=== PATIENT | male | born 1955 | race Caucasian/White ===

== ENCOUNTER 2021-08-28 13:58 | Outpatient (RCR) | payer OTHER, SELFPAY | END 2021-09-27 23:59 | disposition home or self-care (01) | LOC: TPT 13:58 | PROVIDERS: Referring Provider Emergency Medicine Emergency Medical Services; Visit Provider Emergency Medicine Emergency Medical Services | DX: Z47.1 Aftercare following joint replacement surgery (principal); Z96.652 Presence of left artificial knee joint | CPT/HCPCS: 97110; 97140; 97162 ==

== ENCOUNTER 2022-03-30 21:35 | Emergency (ER) | payer OTHER, SELFPAY ==
[2022-03-30 21:39] VITALS: PULSE 73; RESP 18; TEMP 36.6; O2SAT 98
[2022-03-30 21:43] VITALS: BP 184/98
--- NOTE | 2022-03-30 22:15 | W.ED.WOUNDLC ---
HPI - Wound/Laceration General: Chief Complaint: Wound/Laceration Stated Complaint: right hand lac, fall Time Seen by Provider: 03/30/22 21:53 History of Present Illness: Patient comes in with left knee and right hand injury. States that he tripped and fell landing on his left knee and cutting his right hand. Associated symptoms: Denies fever(s), nausea or vomiting Review of Systems Const: Denies: fever(s) or body aches Eyes: Denies: change in vision or blurry vision ENMT: Denies: throat pain or odynophagia Card: Denies: chest pain or palpitations Resp: Denies: dyspnea or productive cough GI: Denies: abdominal pain, nausea or vomiting : Denies: flank pain or dysuria Musc: Denies: neck pain or back pain Skin/Breast: Denies: rash or pruritus Neuro: Denies: headache(s) or numbness in extremities Psych: Denies: anxiety or change in appetite Endo: Denies: polyuria or excessive sweating Physical Exam Const: COMMON NORMALS: no acute distress, patient oriented x3, healthy appearing and alert HENMT: COMMON NORMALS: normocephalic and atraumatic HEAD & SCALP: normocephalic and atraumatic Eye: COMMON NORMALS: Equal, round and reactive pupils present and EOMs intact bilaterally PUPIL: Yes Equal, round and reactive pupils present Neck/C-Spine: COMMON NORMALS: full ROM and supple Resp: COMMON NORMALS: normal respiratory effort, No retractions and No use of accessory muscles Cardio: COMMON NORMALS: regular rate and regular rhythm RATE: regular rate RHYTHM: regular rhythm GI: COMMON NORMALS: Normal to inspection, nondistended, normoactive bowel sounds present, Soft to palpation and non-tender PALPATION: Yes Soft to palpation Back/Pelvis: COMMON NORMALS: thoracic and lumbar spine normal to inspection and no thoracic nor lumbar tenderness Extremity: NARRATIVE EXTREMITY EXAM: an abrasion/contusion and swelling of his left knee. He can bear weight and has full range of motion without pain. 2 cm laceration at the base of his right pinky finger. Neuro: COMMON NORMALS: patient oriented x3 SENSORIUM/ORIENTATION: Yes alert Psych: COMMON NORMALS: mental status grossly normal and cooperative Skin: COMMON NORMALS: no rashes or lesions noted GENERAL SKIN EXAM: no rashes or lesions noted Course Vital Signs: Vital signs: Vital Signs Temperature 97.8 F 03/30/22 21:39 Pulse Rate 73 03/30/22 21:39 Respiratory Rate 18 03/30/22 21:39 Blood Pressure 184/98 03/30/22 21:43 Pulse Oximetry 98 03/30/22 21:39 Oxygen Delivery Me thod 03/30/22 21:39 MDM - Wound/Laceration Medical Decision Making Patient comes in with left knee and right hand injury. States that he tripped and fell landing on his left knee and cutting his right hand. On physical exam he has an abrasion/contusion and swelling of his left knee. He can bear weight and has full range of motion without pain. He has previous full knee replacement on that side. He also has a 2 cm laceration at the base of his right pinky finger. It is a linear well approximated laceration. I talked to him about sutures versus Dermabond and Steri-Strips, and he is agreeable to the Dermabond and Steri-Strip. We will give him a tetanus shot, clean and repair the wound, and reassess. Patient tolerated the wound repair without complication. Will discharge at this time with precautions to return for worsening or changing symptoms. 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
[2022-03-30] MEDS: tetanus-diphtheria tox (adult) 0.5 mL SDV IM (22:26)
[2022-03-30 22:37] VITALS: PULSE 66; RESP 17; TEMP 36.7; O2SAT 99
== END 2022-03-30 22:49 | disposition home or self-care (01) ==
PROVIDERS: Emergency Provider Emergency Medicine
DX: S61.411A Laceration without foreign body of right hand, initial encounter (principal); S80.02XA Contusion of left knee, initial encounter; Z23 Encounter for immunization; W01.0XXA Fall on same level from slipping, tripping and stumbling without subsequent striking against object, initial encounter
CPT/HCPCS: 12001; 90471; 90714; 99283

== ENCOUNTER 2022-08-15 20:00 | Outpatient (CLI) | payer OTHER, SELFPAY | END 2022-08-15 20:01 | disposition home or self-care (01) | LOC: SLEEP 08-16 06:11 | PROVIDERS: Visit Provider Emergency Medicine Emergency Medical Services | DX: G47.33 Obstructive sleep apnea (adult) (pediatric) (principal) | CPT/HCPCS: 95810 ==

== ENCOUNTER 2022-10-14 06:12 | Outpatient (CLI) | payer OTHER, SELFPAY | END 2022-10-14 06:13 | disposition home or self-care (01) | LOC: SLEEP 10-15 06:12 | PROVIDERS: Visit Provider Emergency Medicine Emergency Medical Services | DX: G47.33 Obstructive sleep apnea (adult) (pediatric) (principal) | CPT/HCPCS: 95811 ==

== ENCOUNTER 2023-10-01 12:15 | Inpatient (IN) | payer OTHER, SELFPAY ==
[2023-10-01] VITALS (8 sets, daily range): BP systolic 139–161; BP diastolic 75–98; PULSE 63–83; RESP 14–20; TEMP 36.4–36.7; O2SAT 94–97; BMI 33.9; BMI 34.3
--- NOTE | 2023-10-01 12:26 | ECG_ITS ---
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 Measurements Intervals [place] Rate: 72 P: 16 OR: 158 QRS: 8 QRSD: 105 T: 30 QT: 375 QTc: 412 Interpretive Statements SINUS RHYTHM NONSPECIFIC T-WAVE ABNORMALITY No previous ECG available for comparison Electronically Signed On 10-01-2023 12:40:22 CDT by Stefano Gallagher M.D. [id number]
--- NOTE | 2023-10-01 12:33 | XR_ITS ---
WS: [id number] Examination: XR chest 1V portable [id number] Reason for Exam: cp Date: October 01, 2023 Comparison: None. Findings: Heart is not enlarged. The mediastinum not widened There is no pulmonary edema or pleural effusion. There is no dense consolidation. Suspected granulomas are noted particularly on the left. Impression: No acute lung process is seen.
--- NOTE | 2023-10-01 12:54 | W.ED.SOB ---
HPI - SOB/Dyspnea General: Chief Complaint: Shortness of Breath/Dyspnea Stated Complaint: sob Time Seen by Provider: 10/01/23 12:32 Source: patient Mode of arrival: ambulatory Limitations: no limitations History of Present Illness: HPI Narrative: 68-year-old male had a total knee revision to his left knee a week ago. He states that last night he felt like he could not breathe with his CPAP on and had a panic attack he states that he is continue to fail some shortness of breath throughout the day today denies any chest pain he spoke to his surgeon they want him to be ruled out for a pulmonary embolism. He denies any cough or fever. Associated symptoms: Deny abdominal pain, chest pain, fever(s), nausea or vomiting Review of Systems Const: Denies: fever(s), chills, body aches or change in appetite ENMT: Denies: throat pain or dental pain Card: Denies: chest pain Resp: Reports: dyspnea GI: Denies: abdominal pain, nausea, vomiting or diarrhea Musc: Denies: neck pain or back pain Skin/Breast: Denies: rash Neuro: Denies: headache(s) Physical Exam Const: COMMON NORMALS: no acute distress, patient oriented x3 and healthy appearing HENMT: COMMON NORMALS: normocephalic and atraumatic HEAD & SCALP: normocephalic and atraumatic Eye: COMMON NORMALS: conjunctivae normal CONJUNCTIVA: Yes conjunctivae normal Neck/C-Spine: COMMON NORMALS: full ROM and supple Chest: COMMONS NORMALS: normal inspection of the chest and normal palpation of entire chest wall Resp: COMMON NORMALS: normal respiratory effort, No retractions, No use of accessory muscles and clear to auscultation bilaterally AUSCULTATION: clear to auscultation bilaterally Cardio: COMMON NORMALS: regular rate, regular rhythm and No murmurs present (Cardio) RATE: regular rate RHYTHM: regular rhythm Extremity: COMMON NORMALS: normal to inspection and full ROM Neuro: COMMON NORMALS: patient oriented x3, moves all extremities and no focal motor deficits Psych: COMMON NORMALS: mental status grossly normal, Normal thought process present and cooperative THOUGHT PROCESS: Normal thought process present Skin: COMMON NORMALS: no rashes or lesions noted and no wounds GENERAL SKIN EXAM: no rashes or lesions noted Course Vital Signs: Vital signs: Vital Signs Temperature 97.5 F L 10/01/23 12:20 Pulse Rate 71 10/01/23 14:30 Respiratory Rate 16 10/01/23 14:30 Blood Pressure 144/88 10/01/23 14:30 Pulse Oximetry 97 10/01/23 14:30 Oxygen Delivery Me thod Room Air 10/01/23 14:30 MDM - SOB/Dyspnea Medical Decision Making To the pulmonary embolism his vitals here are stable we will start him on Lovenox spoke to the hospitalist will admit. Medical Records I reviewed the patient's medical records. Lab Data I reviewed the patient's lab results. 10/01/23 12:48 10/01/23 12:48 Labs/Radiology: Laboratory Results WBC 9.34 10^3/uL (3.29-11.43) 10/01/23 12:48 RBC 4.36 10^6/uL (3.85-5.65) 10/01/23 12:48 Hgb 13.70 g/dL (11.27-16.99) 10/01/23 12:48 Hct 40.1 % (37-53) 10/01/23 12:48 MCV 92.0 fl (82-101) 10/01/23 12:48 MCH 31.4 pg (27-33) 10/01/23 12:48 MCHC 34.2 g/dL (30-55) 10/01/23 12:48 RDW 13.4 % (12.1-15.1) 10/01/23 12:48 Plt Count 590 10^3/cmm (157-399) H 10/01/23 12:48 MPV 11.0 fL (7.4-10.4) H 10/01/23 12:48 Neut % (Auto) 61.2 % 10/01/23 12:48 Lymph % (Auto) 21.1 % 10/01/23 12:48 Bond % (Auto) 13.2 % 10/01/23 12:48 Eos % (Auto) 3.4 % 10/01/23 12:48 Baso % (Auto) 0.9 % 10/01/23 12:48 Neut # (Auto) 5.72 10^3/uL (1.8-7.7) 10/01/23 12:48 Lymph # (Auto) 2.0 10^3/uL (0.8-4.8) 10/01/23 12:48 Bond # (Auto) 1.2 10^3/uL (0.2-0.9) H 10/01/23 12:48 Eos # (Auto) 0.3 10^3/uL (0.0-0.8) 10/01/23 12:48 Baso # (Auto) 0.1 10^3/uL (0.0-0.1) 10/01/23 12:48 Nucleated RBC % (auto) 0 % 10/01/23 12:48 Nucleated RBCs # 0.0 /100WBC 10/01/23 12:48 D-Dimer 3.10 ug/mLFEU (0-0.59) H 10/01/23 12:48 Sodium 141 mmol/L (136-145) 10/01/23 12:48 Potassium 4.6 mmol/L (3.5-5.1) 10/01/23 12:48 Chloride 107 mmol/L (98-107) 10/01/23 12:48 Carbon Dioxide 22 mmol/L (22-29) 10/01/23 12:48 Anion Gap 16.6 (5-19) 10/01/23 12:48 BUN 14 mg/dL (8-23) 10/01/23 12:48 Creatinine 0.9 mg/dL (0.7-1.2) 10/01/23 12:48 GFR Calculation 84.4 mL/min (90-130) L 10/01/23 12:48 Glucose 110 mg/dL (65-115) 10/01/23 12:48 Calculated Osmolality 293 mOsm/kg (285-295) 10/01/23 12:48 Calcium 10.0 mg/dL (8.5-10.5) 10/01/23 12:48 Total Bilirubin 1.0 mg/dL (0.15-1.2) 10/01/23 12:48 AST 31 U/L (0-40) 10/01/23 12:48 ALT 52 U/L (0-41) H 10/01/23 12:48 Alkaline Phosphatase 104 U/L (40-130) 10/01/23 12:48 Troponin T Baseline 18 ng/L (0-15) H 10/01/23 12:48 Troponin T 120 Minute 12.55 ng/L (0-15) 10/01/23 14:48 Delta Troponin T -5.45 ABS# (0-10) L 10/01/23 14:48 NT-Pro-B Natriuret Pep 53 pg/mL (0-125) 10/01/23 12:48 Total Protein 7.1 g/dL (6.6-8.7) 10/01/23 12:48 Albumin 4.1 g/dL (3.5-5.2) 10/01/23 12:48 Globulin 3.0 g/dL (1.3-4.6) 10/01/23 12:48 All radiology interpretation(s) finalized by discharge EKG Data EKG 1: I personally reviewed and interpreted this EKG as follows: EKG Interpretation Date: 10/01/23 EKG interpretation time: 12:26 Interpretation: nsr hr [address] or t wave abnormalities qrs 105 qtc 399 EKG 2: I personally reviewed and interpreted this EKG as follows: EKG Interpretation Date: 10/01/23 EKG interpretation time: 14:50 Interpretation: nsr hr [address] or t wave abnormalities qrs 96 qtc 408 Discharge Plan Discharge Condition: Stable Prescriptions: No Action celecoxib 200 mg capsule 200 mg PO BID cetirizine 10 mg Tablet 10 mg PO DAILY PRN (Reason: Allergy Symptoms) ibuprofen 800 mg Tablet 800 mg PO TID PRN (Reason: Pain) aspirin 81 mg tablet,delayed release (DR/EC) 81 mg PO BID tramadol 50 mg tablet 50 mg PO Q6H PRN (Reason: Pain) famotidine 20 mg tablet 20 mg PO BID tamsulosin 0.4 mg Capsule 0.4 mg PO QPM carboxymethylcellulose sodium 0.5 % Drops 1 drp OPHTHALMIC (EYE) QID PRN (Reason: Dry Eye(S)) triamcinolone acetonide 0.1 % Ointment 1 applic TOPICAL BID PRN (Reason: rash) lidocaine 5 % Adhesive Patch,Medicated 1 patch TOPICAL DAILY Rx Instructions: leave on most painful area for up to 12 hrs omeprazole 20 mg Capsule,Delayed Release(Dr/Ec) 20 mg PO DAILY dorzolamide-timolol 22.3-6.8 mg/mL Drops 1 drp OPHTHALMIC (EYE) BID Dulcolax (bisacodyl) 5 mg Tablet,Delayed Release (Dr/Ec) 5 mg PO DAILY PRN (Reason: Constipation) hydrochlorothiazide 25 mg Tablet 25 mg PO DAILY polyethylene glycol 3350 17 gram/dose powder 17 g PO DAILY lisinopril 40 mg Tablet 40 mg PO DAILY fluticasone propionate 50 mcg/actuation [place],Suspension 2 spray INTRANASAL DAILY PRN (Reason: Allergy Symptoms) Rx Instructions: administer into each nostril carboxymethylcellulose sodium 1 % Drops, Liquid Gel 1 drp OPHTHALMIC (EYE) QID PRN (Reason: Dry Eye(S)) oxycodone 5 mg tablet 5 mg PO Q4H PRN (Reason: Pain) tadalafil 20 mg Tablet 20 mg PO DAILY PRN (Reason: Erectile Dysfunction) Rx Instructions: administer approximately 30min before sexual activity; do not use more than 1 dose per 24hrs Vitamin D3 25 mcg (1,000 unit) Tablet 125 mcg PO DAILY diclofenac sodium 1 % Gel 4 g TOPICAL QID Rx Instructions: apply to single knee, ankle, foot; for foot includes sole/toes/top of foot cyclosporine 0.05 % Drops 1 drp OPHTHALMIC (EYE) Q12H Referrals: Jac Leach DO [Primary Care Provider] - Coding 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
[2023-10-01 13:10] LABS: Basophils # 0.1 10^3/uL (0.0-0.1); Basophils % 0.9 %; Eosinophils # 0.3 10^3/uL (0.0-0.8); Eosinophils % 3.4 %; Hematocrit 40.1 % (37-53); Lymphocytes % 21.1 %; Mean Corpuscular HGB Conc 34.2 g/dL (30-55); Mean Corpuscular Hemoglobin 31.4 pg (27-33); Monocytes # 1.2 10^3/uL (0.2-0.9); Monocytes % 13.2 %; Neutrophils # 5.72 10^3/uL (1.8-7.7); Neutrophils % 61.2 %; Nucleated Red Blood Cells % 0 %; Platelet Count 590 10^3/cmm (157-399); Red Blood Count 4.36 10^6/uL (3.85-5.65); Red Cell Distribution Width 13.4 % (12.1-15.1); White Blood Count 9.34 10^3/uL (3.29-11.43)
--- NOTE | 2023-10-01 13:15 | PC.NURSE ---
Pt on bedside diagnostic cardiac sonographer
[2023-10-01 13:35] LABS: Troponin(5th) Baseline 18 ng/L (0-15)
[2023-10-01 13:51] LABS: Alanine Aminotransferase 52 U/L (0-41); Albumin Level 4.1 g/dL (3.5-5.2); Alkaline Phosphatase 104 U/L (40-130); Anion Gap 16.6 (5-19); Aspartate Amino Transferase 31 U/L (0-40); Blood Urea Nitrogen 14 mg/dL (8-23); Carbon Dioxide 22 mmol/L (22-29); Chloride 107 mmol/L (98-107); Creatinine Clr Calc Pharmacy 101.9432; Glomerular Filtration Rate 84.4 mL/min (90-130); Glucose 110 mg/dL (65-115); NT Pro B Type Natriuretic Pept 53 pg/mL (0-125); Osmolality Calculated 293 mOsm/kg (285-295); Potassium 4.6 mmol/L (3.5-5.1); Sodium 141 mmol/L (136-145); Total Protein 7.1 g/dL (6.6-8.7)
--- NOTE | 2023-10-01 14:33 | ECG_ITS ---
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 Measurements Intervals [place] Rate: 67 P: 12 [place]: 161 QRS: 4 QRSD: 96 T: 9 QT: 392 QTc: 416 Interpretive Statements SINUS RHYTHM MODERATE VOLTAGE CRITERIA FOR LVH, CONSIDER NORMAL VARIANT [MEETS CRITERIA IN ONE OF: R(aVL), S(V1), R(V5), R(V5/V6)+S(V1)] NONSPECIFIC T-WAVE ABNORMALITY Compared to ECG 10/01/2023 12:26:34 No significant changes Electronically Signed On 10-01-2023 15:26:10 CDT by Stefano Gallagher M.D. [id number]
--- NOTE | 2023-10-01 14:49 | CT_ITS ---
WS: [id number] CTA OF THE CHEST WITH PULMONARY EMBOLISM PROTOCOL TECHNIQUE: High-resolution contrast enhanced CTA of the chest with coronal and sagittal reformatted i mages with pulmonary embolism protocol. MIP images are also reviewed. CLINICAL INFORMATION: sob COMPARISON: None. DLP: 513.[address] scans at [facility] use at least one of these dose optimization techniques: automated e xposure control; mA and/or kV adjustment per patient size (includes targeted exams where dose is matc hed to clinical indication); or iterative reconstruction. FINDINGS: Proximal main pulmonary arteries are normal. Filling defects in the segmental and subsegmental pulmon [place] arteries compatible with acute pulmonary embolus. This extends into both lungs. Paradoxical bowin g of the intraventricular septum compatible with RIGHT heart strain. This could be further evaluated with echocardiography. No mediastinal or hilar lymphadenopathy. No axillary lymphadenopathy. Small esophageal hiatal hernia. Cholecystectomy clips. Adrenal glands are normal. Celiac and SMA are patent in the upper abdomen. Lungs are well aerated. No acute pulmonary infiltrates. No pulmonary infarcts. IMPRESSION: 1. Acute pulmonary embolus in the bilateral segmental and subsegmental pulmonary arteries. Proximal main pulmonary arteries are patent. 2. Evidence of RIGHT heart strain. Recommend echocardiography. Notified Rodo Tovar MD at 10/01/2023 3:20 PM.
--- NOTE | 2023-10-01 14:54 | PC.NURSE ---
to CT scan
[2023-10-01] MEDS: iohexol 350 mg/mL 500 mL Btl (per mL) IV (15:06)
[2023-10-01 15:17] LABS: Troponin 5 2HR 12.55 ng/L (0-15)
[2023-10-01 15:21] LABS: Troponin 5 2HR Delta -5.45 ABS# (0-10)
[2023-10-01] MEDS: enoxaparin 120 mg/0.8 mL Syringe 110 MG SUBCUT (15:40)
--- NOTE | 2023-10-01 16:18 | PC.NURSE ---
Attempted report, nurse unavailable, will call me back when ready
--- NOTE | 2023-10-01 16:28 | P.HP_ITS ---
Providers/Chief Complaint 2 Admitting Physician: Julian Philip DO Primary Care Provider: Jac Leach DO Chief Complaint: sob History of Present Illness Reed Newton is a 68 year old male who is postop day 5 from left total knee arthroplasty revision done at [facility] by Dr. Doyle. Patient has a wound VAC and has a knee immobilizer on. He was sent home without physical therapy due to the wound VAC. He was placed on aspirin 81 mg daily. Patient admits to not being as active as instructed. He wears a CPAP at home. He complains that he was having trouble 2 nights ago not being able to take a deep breath. During the day it was better but laying down he became short of breath and even had an apparent panic attack last night. This morning he called Dr. Doyle's office to explain his symptoms and they asked him to be evaluated for PE In the emergency room he was found to have acute pulmonary embolus in the bilateral segmental and subsegmental pulmonary arteries. The proximal main pulmonary arteries are patent there is evidence of right heart strain. Review of Systems 2 Const: Denies: fever(s) or chills Eyes: Denies: change in vision ENMT: Denies: throat pain or nasal congestion Card: Denies: chest pain or palpitations Resp: Reports: dyspnea (Inability to take a deep breath); Denies: productive cough GI: Denies: abdominal pain, nausea, vomiting or change in stool character : Denies: difficulty urinating or dysuria Musc: Denies: back pain or extremity pain Skin/Breast: Denies: rash or lesions Neuro: Denies: headache(s) or dizziness Psych: Denies: anxiety or depression Tevin/Lymph: Denies: easy bruising or easy bleeding Medications/Allergies Home Medications Medication Instructions Recorded Confirmed Last Taken Type aspirin 81 mg tablet,delayed 81 mg PO BID 10/01/23 10/01/23 10/01/23 History release bisacodyl 5 mg tablet,delayed 5 mg PO DAILY PRN Constipation 10/01/23 10/01/23 09/30/23 History release (Dulcolax (bisacodyl)) carboxymethylcellulose sodium 0.5 1 drp ophthalmic (eye) QID PRN Dry 10/01/23 10/01/23 Unknown History % eye drops Eye(S) carboxymethylcellulose sodium 1 % 1 drp ophthalmic (eye) QID PRN Dry 10/01/23 10/01/23 Unknown History eye liquid gel drops Eye(S) celecoxib 200 mg capsule 200 mg PO BID 10/01/23 10/01/23 Unknown History cetirizine 10 mg tablet 10 mg PO DAILY PRN Allergy Symptoms 10/01/23 10/01/23 Unknown History cholecalciferol (vitamin D3) 25 125 mcg PO DAILY 10/01/23 10/01/23 10/01/23 History mcg (1,000 unit) tablet (Vitamin D3) cyclosporine 0.05 % eye drops 1 drp ophthalmic (eye) Q12H 10/01/23 10/01/23 10/01/23 History diclofenac sodium 1 % topical gel 4 g topical QID 10/01/23 10/01/23 Unknown History dorzolamide 22.3 mg-timolol 6.8 1 drp ophthalmic (eye) BID 10/01/23 10/01/23 10/01/23 History mg/mL eye drops famotidine 20 mg tablet 20 mg PO BID 10/01/23 10/01/23 Unknown History fluticasone propionate 50 2 spray intranasal DAILY PRN 10/01/23 10/01/23 Unknown History mcg/actuation nasal Allergy Symptoms spray,suspension hydrochlorothiazide 25 mg tablet 25 mg PO DAILY 10/01/23 10/01/23 10/01/23 History ibuprofen 800 mg tablet 800 mg PO TID PRN Pain 10/01/23 10/01/23 Unknown History lidocaine 5 % topical patch 1 patch topical DAILY 10/01/23 10/01/23 Unknown History lisinopril 40 mg tablet 40 mg PO DAILY 10/01/23 10/01/23 10/01/23 History omeprazole 20 mg capsule,delayed 20 mg PO DAILY 10/01/23 10/01/23 10/01/23 History release oxycodone 5 mg tablet 5 mg PO Q4H PRN Pain 10/01/23 10/01/23 Unknown History polyethylene glycol 3350 17 17 g PO DAILY 10/01/23 10/01/23 Unknown History gram/dose oral powder tadalafil 20 mg tablet 20 mg PO DAILY PRN Erectile 10/01/23 10/01/23 Unknown History Dysfunction tamsulosin 0.4 mg capsule 0.4 mg PO QPM 10/01/23 10/01/23 09/30/23 History tramadol 50 mg tablet 50 mg PO Q6H PRN Pain 10/01/23 10/01/23 Unknown History triamcinolone acetonide 0.1 % 1 applic topical BID PRN rash 10/01/23 10/01/23 Unknown History topical ointment Allergies Allergy/AdvReac Type Severity Reaction Status Date / Time diphenhydramine Allergy ADR-Irritab Verified 10/01/23 12:26 [From Benadryl] le morphine Allergy ALGY-Rash Verified 10/01/23 12:26 PFSH Acute 2 PFSH: Medical History (Updated 10/01/23 @ 16:48 by Julian Philip DO) Obesity (BMI 30.0-34.9) GERD (gastroesophageal reflux disease) Hypertension Surgical History (Updated 10/01/23 @ 16:48 by Julian Philip DO) Status post total knee replacement, left Revision, 09/26/2023 History of total left knee replacement 2019 in [place] History of total right hip replacement Social History (Updated 10/01/23 @ 16:36 by Julian Philip DO) Smoking and tobacco/nicotine status: unknown if used tobacco/nicotine Alcohol intake: unknown Household members: spouse Marital status: Vitals/I&O/Wt Last Vital Signs Temp 97.5 F L 10/01/23 12:20 Pulse 68 10/01/23 15:30 Resp 18 10/01/23 15:30 BP 161/98 10/01/23 15:30 Pulse Ox 95 10/01/23 15:30 O2 Del Method Room Air 10/01/23 15:30 Weight last 48 hrs Weight 110.223 kg Physical Exam 2 Narrative: Obese white male sitting up in bed in no acute distress. He has no oxygen on HEENT head is normocephalic atraumatic pupils equal round and reactive to light and commendation extraocular muscles intact there is no scleral icterus neck is supple no JVD carotid bruits lymphadenopathy mucous membranes are moist and pink without erythema or exudate Chest: Rises symmetrically with inspiration no pain to palpation Heart: Regular normal S1-S2 without murmurs clicks gallops or rubs lungs: clear to auscultation but slightly diminished air flow Abdomen: Protuberant positive bowel sounds no hepatosplenomegaly soft nontender Extremities. Left extremity in knee immobilizer this was removed he has a wound VAC on the left knee and there is still yellow iodine stain on his extremity postoperatively Neuro patient is alert and oriented to person place time and situation the patient is nonfocal exam Psych: Mood and affect are appropriate for condition Skin: No lesions or rashes noted Back: No obvious scoliosis or kyphosis no CVA tenderness Data 10/01/23 12:48 10/01/23 12:48 CXR: My impression: No acute findings Radiologist's impression: No acute lung process is seen. CTA Chest: Radiologist's impression: IMPRESSION: 1. Acute pulmonary embolus in the bilateral segmental and subsegmental pulmonary arteries. Proximal main pulmonary arteries are patent. 2. Evidence of RIGHT heart strain. Recommend echocardiography. EKG 2: My Interpretation: Normal sinus rhythm with a rate of 67 ND interval is normal QRS interval is 96. Moderate criteria for LVH. Nonspecific ST-T wave changes in 3 and aVF EKG computer-generated impression: SINUS RHYTHM MODERATE VOLTAGE CRITERIA FOR LVH, CONSIDER NORMAL VARIANT [MEETS CRITERIA IN ONE OF: R(aVL), S(V1), R(V5), R(V5/V6)+S(V1)] NONSPECIFIC T-WAVE ABNORMALITY Compared to ECG 10/01/2023 12:26:34 No significant changes A&P Assessment and plan (1) Pulmonary embolus: Patient given full dose Lovenox started in ER. Will obtain echocardiogram given CTA finding of right heart strain Etiology is immobility status post recent left total knee arthroplasty Qualifiers: Pulmonary embolism type: multiple subsegmental (without acute cor pulmonale) Qualified Code(s): I26.94 - Multiple subsegmental pulmonary emboli without acute cor pulmonale (2) Status post total knee replacement, left: PT tube consult for best mobility. (3) Obesity (BMI 30.0-34.9): (4) GERD (gastroesophageal reflux disease): Continue home meds Qualifiers: Esophagitis presence: esophagitis presence not specified Qualified Code(s): K21.9 - Gastro-esophageal reflux disease without esophagitis (5) Hypertension: Continue home medication Qualifiers: Hypertension type: primary hypertension Qualified Code(s): I10 - Essential (primary) hypertension (6) History of total left knee replacement: Attestations 2 Medical Necessity Statement*: Patient will cross 2 midnights due to pulmonary embolus and its treatment. He is at high risk for life-threatening hypoxia or heart failure Coding Level of Care Code Acute Code for Chg Fwd Diagnoses Multiple subsegmental pulmonary emboli without acute cor pulmonale I26.94 Pulmonary embolism type: multiple subsegmental (without acute cor pulmonale) Status post total knee replacement, left Z96.652 Obesity (BMI 30.0-34.9) E66.9 Gastroesophageal reflux disease, unspecified whether esophagitis present K21.9 Esophagitis presence: esophagitis presence not specified Primary hypertension I10 Hypertension type: primary hypertension History of total left knee replacement Z96.652
--- NOTE | 2023-10-01 16:49 | USCV_ITS ---
Reed Newton Age: 68 Gender: M : 1955 Exam Date: 10/01/2023 18:25 Ordering Phys: Julian Philip DO Technologist: Exam Location: [facility] [place] Indication: rt heart strain BP: 147 / 87 HR: 103 Rhythm: Sinus Technical Quality: Adequate MEASUREMENTS (Male / Female) Normal Values 2D ECHO LV Diastolic Diameter PLAX 4.1 cm 4.2 - 5.9 / 3.9 - 5.3 cm IVS Diastolic Thickness 1.2 cm 0.6 - 1.0 / 0.6 - 0.9 cm IVS Systolic Thickness 1.5 cm LVPW Diastolic Thickness 1.3 cm 0.6 - 1.0 / 0.6 - 0.9 cm LVPW Systolic Thickness 1.4 cm LVOT Diameter 2.0 cm LV Ejection Fraction 2D Teich 60.4 % LV Ejection Fraction MOD 2C 57.6 % LV Ejection Fraction 2C AL 57.5 % LA Diameter 3.6 cm RA Systolic Volume 4C AL 52.9 ml RA Systolic Volume 4C MOD 50.6 ml M-MODE LA Ao Ratio MM 1.0 AV Cusp Separation MM 2.0 cm DOPPLER AV Peak Velocity 131.0 cm/s LVOT Peak Velocity 109.0 cm/s AV Area Cont Eq vti 3.5 cm squared AV Area Cont Eq pk 2.7 cm squared MV Peak Velocity 134.0 cm/s MV Area PHT 7.9 cm squared Mitral E to A Ratio 0.6 TR Peak Velocity 129.0 cm/s TR Peak Gradient 6.7 mmHg TV Peak E Velocity 176.0 cm/s Right Atrial Pressure 12.0 mmHg Pulmonary Artery Systolic Pressu 18.7 mmHg PV Peak Velocity 107.0 cm/s FINDINGS Left Ventricle Moderate left ventricular hypertrophy. Normal left ventricular size and systolic function, EF 58% . No regional wall motion abnormalities. Grade I/IV diastolic dysfunction (abnormal relaxation filling pattern), normal to mildly elevated filling pressures. Right Ventricle Possibly of normal size ejection fraction. Right Atrium Possibly of normal size Left Atrium Patient to be of normal size Mitral Valve No gross abnormalities noted. Aortic Valve No gross abnormalities noted Tricuspid Valve Not visualized well Pulmonic Valve Pulmonic valve not well visualized. Pericardium No pericardial effusion. Aorta Normal aortic annulus size. IVC Inferior vena cava not visualized. CONCLUSIONS Moderate left ventricular hypertrophy. Normal left ventricular size and systolic function, EF 58% . No regional wall motion abnormalities. Grade I/IV diastolic dysfunction (abnormal relaxation filling pattern), normal to mildly elevated filling pressures. Possibly normal RV size with no evidence of any RV strain. The right ventricle is not visualized that well There is no pericardial effusion. Technically somewhat difficult study Dr Caitlin Dorado MD FAC (Electronically Signed) Final Date: 01 October 2023 23:42 S
[2023-10-01] MEDS: aspirin 81 mg EC Tablet PO (18:14)
[2023-10-01] MEDS: CELEcoxib 200 mg Capsule PO (18:14)
[2023-10-01 19:29] LABS: Troponin 5 6HR 14.18 ng/L (0-15); Troponin 5 6HR Delta -3.82 ng/L (0-12)
[2023-10-01] MEDS: acetaminophen 325 mg Tablet 650 MG PO (22:08)
[2023-10-01] MEDS: diclofenac 1% Topical Gel 100 gm 8 APPLIC TOPICAL (22:11)
[2023-10-02] VITALS: BP 133/77; PULSE 71; RESP 18; TEMP 37.1; O2SAT 94
[2023-10-02 02:12] VITALS: RESP 18
[2023-10-02] MEDS: oxyCODONE 5 mg IR Tab/Cap PO (02:12)
[2023-10-02 04:00] VITALS: BP 144/88; PULSE 66; RESP 18; TEMP 36.6; O2SAT 94
[2023-10-02] MEDS: enoxaparin 120 mg/0.8 mL Syringe 110 MG SUBCUT (04:09)
[2023-10-02 05:02] LABS: Basophils # 0.1 10^3/uL (0.0-0.1); Basophils % 1.2 %; Eosinophils # 0.4 10^3/uL (0.0-0.8); Eosinophils % 4.2 %; Hematocrit 39.2 % (37-53); Lymphocytes # 3.5 10^3/uL (0.8-4.8); Lymphocytes % 34.8 %; Mean Corpuscular HGB Conc 33.7 g/dL (30-55); Mean Corpuscular Hemoglobin 31.4 pg (27-33); Mean Corpuscular Volume 93.3 fl (82-101); Mean Platelet Volume 11.1 fL (7.4-10.4); Monocytes # 1.4 10^3/uL (0.2-0.9); Monocytes % 14.2 %; Neutrophils % 45.1 %; Nucleated Red Blood Cells % 0 %; Platelet Count 583 10^3/cmm (157-399); Red Cell Distribution Width 13.8 % (12.1-15.1); White Blood Count 9.99 10^3/uL (3.29-11.43)
[2023-10-02 05:21] LABS: Anion Gap 15.9 (5-19); Blood Urea Nitrogen 16 mg/dL (8-23); Calcium 9.5 mg/dL (8.5-10.5); Carbon Dioxide 22 mmol/L (22-29); Chloride 106 mmol/L (98-107); Creatinine Clr Calc Pharmacy 84.0016; Glucose 114 mg/dL (65-115); Osmolality Calculated 292 mOsm/kg (285-295); Potassium 3.9 mmol/L (3.5-5.1); Sodium 140 mmol/L (136-145)
[2023-10-02 05:59] VITALS: PULSE 62
[2023-10-02 08:00] VITALS: BP 155/87; PULSE 68; RESP 16; TEMP 36.6; O2SAT 95
[2023-10-02] MEDS: TRAMadol 50 mg Tablet PO (08:26)
[2023-10-02] MEDS: CELEcoxib 200 mg Capsule PO (09:04)
[2023-10-02] MEDS: hydroCHLOROthiazide 25 mg Tablet PO (09:07)
[2023-10-02] MEDS: aspirin 81 mg EC Tablet PO (09:07)
[2023-10-02] MEDS: cholecalciferol (vitamin D3) 5,000 unit Tablet 5000 UNIT PO (09:08)
[2023-10-02] MEDS: famotidine 20 mg Tablet PO (09:09)
[2023-10-02] MEDS: pantoprazole DR 40 mg Tablet PO (09:09)
[2023-10-02] MEDS: lisinopril 20 mg Tablet 40 MG PO (09:10)
--- NOTE | 2023-10-02 10:56 | P.DS_ITS ---
Discharge Providers Date of Admission: 10/01/23 16:01 Date of Discharge: October 02, 2023 Attending Provider at Admission: Julian Philip DO Attending Provider at Discharge: Julian Philip DO Primary Care Provider: Jac Leach DO Diagnoses at Discharge Discharge Diagnosis (1) Pulmonary embolus: Status: Acute Qualifiers: Pulmonary embolism type: multiple subsegmental (without acute cor pulmonale) Qualified Code(s): I26.94 - Multiple subsegmental pulmonary emboli without acute cor pulmonale (2) Status post total knee replacement, left: Status: Acute Permanent problem details: Revision, 09/26/2023 (3) Obesity (BMI 30.0-34.9): Status: Acute (4) GERD (gastroesophageal reflux disease): Status: Acute Qualifiers: Esophagitis presence: esophagitis presence not specified Qualified Code(s): K21.9 - Gastro-esophageal reflux disease without esophagitis (5) Hypertension: Status: Acute Qualifiers: Hypertension type: primary hypertension Qualified Code(s): I10 - Essential (primary) hypertension (6) History of total left knee replacement: Status: Inactive Permanent problem details: 2019 in [place] Reason for Visit Reason for Visit: sob Hospital Course Hospital Course Reed Newton is a 68 year old male who is postop day 5 from left total knee arthroplasty revision done at [facility] by Dr. Doyle. Patient has a wound VAC and has a knee immobilizer on. He was sent home without physical therapy due to the wound VAC. He was placed on aspirin 81 mg daily. Patient admits to not being as active as instructed. He wears a CPAP at home. He complains that he was having trouble 2 nights ago not being able to take a deep breath. During the day it was better but laying down he became short of breath and even had an apparent panic attack last night. This morning he called Dr. Doyle's office to explain his symptoms and they asked him to be evaluated for PE In the emergency room he was found to have acute pulmonary embolus in the bilateral segmental and subsegmental pulmonary arteries. The proximal main pulmonary arteries are patent there is evidence of right heart strain. He was admitted for anticoagulation. A subsequent echocardiogram showed no RV strain. His vital signs are stable he is not hypoxic he is able to be discharged on NOAC and follow-up with his surgeon. We did have PT eval and treat the patient reviewed the exercises he was supposed to be doing which he was not admittedly he was not getting up and walking every hour as instructed. We have reiterated appropriate discharge instructions. Physical Exam Narrative: Obese white male sitting up in bed in no acute distress. He has no oxygen on Heart: Regular normal S1-S2 without murmurs clicks gallops or rubs lungs: clear to auscultation but slightly diminished air flow Abdomen: Protuberant positive bowel sounds no hepatosplenomegaly soft nontender Extremities. Left extremity in knee immobilizer this was removed he has a wound VAC on the left knee and there is still yellow iodine stain on his extremity postoperatively Discharge Data Studies Completed and Pending Completed Studies During Hospitalization Category Date Time Status CTA chest [CT angio chest PE protcl [id number]] Stat Cat Scan 10/01/23 14:49 Completed XR chest 1V portable [id number] Stat Exams 10/01/23 12:33 Completed CV. echo complete* [id number] Urgent Ultrasound 10/01/23 16:49 Completed Laboratory Results WBC 9.99 10^3/uL (3.29-11.43) 10/02/23 04:15 RBC 4.20 10^6/uL (3.85-5.65) 10/02/23 04:15 Hgb 13.20 g/dL (11.27-16.99) 10/02/23 04:15 Hct 39.2 % (37-53) 10/02/23 04:15 MCV 93.3 fl (82-101) 10/02/23 04:15 MCH 31.4 pg (27-33) 10/02/23 04:15 MCHC 33.7 g/dL (30-55) 10/02/23 04:15 RDW 13.8 % (12.1-15.1) 10/02/23 04:15 Plt Count 583 10^3/cmm (157-399) H 10/02/23 04:15 MPV 11.1 fL (7.4-10.4) H 10/02/23 04:15 Neut % (Auto) 45.1 % 10/02/23 04:15 Lymph % (Auto) 34.8 % 10/02/23 04:15 Rice % (Auto) 14.2 % 10/02/23 04:15 Eos % (Auto) 4.2 % 10/02/23 04:15 Baso % (Auto) 1.2 % 10/02/23 04:15 Neut # (Auto) 4.50 10^3/uL (1.8-7.7) 10/02/23 04:15 Lymph # (Auto) 3.5 10^3/uL (0.8-4.8) 10/02/23 04:15 Rice # (Auto) 1.4 10^3/uL (0.2-0.9) H 10/02/23 04:15 Eos # (Auto) 0.4 10^3/uL (0.0-0.8) 10/02/23 04:15 Baso # (Auto) 0.1 10^3/uL (0.0-0.1) 10/02/23 04:15 Nucleated RBC % (auto) 0 % 10/02/23 04:15 Nucleated RBCs # 0.0 /100WBC 10/02/23 04:15 D-Dimer 3.10 ug/mLFEU (0-0.59) H 10/01/23 12:48 Sodium 140 mmol/L (136-145) 10/02/23 04:15 Potassium 3.9 mmol/L (3.5-5.1) 10/02/23 04:15 Chloride 106 mmol/L (98-107) 10/02/23 04:15 Carbon Dioxide 22 mmol/L (22-29) 10/02/23 04:15 Anion Gap 15.9 (5-19) 10/02/23 04:15 BUN 16 mg/dL (8-23) 10/02/23 04:15 Creatinine 1.1 mg/dL (0.7-1.2) 10/02/23 04:15 GFR Calculation 67.0 mL/min (90-130) L 10/02/23 04:15 Glucose 114 mg/dL (65-115) 10/02/23 04:15 Calculated Osmolality 292 mOsm/kg (285-295) 10/02/23 04:15 Calcium 9.5 mg/dL (8.5-10.5) 10/02/23 04:15 Total Bilirubin 1.0 mg/dL (0.15-1.2) 10/01/23 12:48 AST 31 U/L (0-40) 10/01/23 12:48 ALT 52 U/L (0-41) H 10/01/23 12:48 Alkaline Phosphatase 104 U/L (40-130) 10/01/23 12:48 Troponin T Baseline 18 ng/L (0-15) H 10/01/23 12:48 Troponin T 120 Minute 12.55 ng/L (0-15) 10/01/23 14:48 Delta Troponin T -5.45 ABS# (0-10) L 10/01/23 14:48 Troponin T Hi Sens 6Hr 14.18 ng/L (0-15) 10/01/23 18:59 Troponin T Hi Sens 6Hr Delta -3.82 ng/L (0-12) L 10/01/23 18:59 NT-Pro-B Natriuret Pep 53 pg/mL (0-125) 10/01/23 12:48 Total Protein 7.1 g/dL (6.6-8.7) 10/01/23 12:48 Albumin 4.1 g/dL (3.5-5.2) 10/01/23 12:48 Globulin 3.0 g/dL (1.3-4.6) 10/01/23 12:48 Imaging CTA Chest: Radiologist's impression: IMPRESSION: 1. Acute pulmonary embolus in the bilateral segmental and subsegmental pulmonary arteries. Proximal main pulmonary arteries are patent. 2. Evidence of RIGHT heart strain. Recommend echocardiography. Echo: Radiologist's impression: CONCLUSIONS Moderate left ventricular hypertrophy. Normal left ventricular size and systolic function, EF 58% . No regional wall motion abnormalities. Grade I/IV diastolic dysfunction (abnormal relaxation filling pattern), normal to mildly elevated filling pressures. Possibly normal RV size with no evidence of any RV strain. The right ventricle is not visualized that well There is no pericardial effusion. Technically somewhat difficult study Vitals Last Vital Signs Temp 97.8 F 10/02/23 08:00 Pulse 68 10/02/23 08:00 Resp 16 10/02/23 08:00 BP 155/87 10/02/23 08:00 Pulse Ox 95 10/02/23 08:00 O2 Del Method Room Air 10/01/23 17:09 Discharge Plan Discharge Patient Disposition: Home Condition: Stable Prescriptions: New Eliquis 5 mg tablet 5 mg PO BID Qty: 60 0RF Rx Instructions: 10 mg (2 tabs) bid for 6 days then 5 mg (1 tab) bid for atleast 6 months, per PCP Continued cetirizine 10 mg Tablet 10 mg PO DAILY PRN (Reason: Allergy Symptoms) ibuprofen 800 mg Tablet 800 mg PO TID PRN (Reason: Pain) aspirin 81 mg tablet,delayed release (DR/EC) 81 mg PO BID tramadol 50 mg tablet 50 mg PO Q6H PRN (Reason: Pain) famotidine 20 mg tablet 20 mg PO BID tamsulosin 0.4 mg Capsule 0.4 mg PO QPM carboxymethylcellulose sodium 0.5 % Drops 1 drp OPHTHALMIC (EYE) QID PRN (Reason: Dry Eye(S)) triamcinolone acetonide 0.1 % Ointment 1 applic TOPICAL BID PRN (Reason: rash) lidocaine 5 % Adhesive Patch,Medicated 1 patch TOPICAL DAILY Rx Instructions: leave on most painful area for up to 12 hrs omeprazole 20 mg Capsule,Delayed Release(Dr/Ec) 20 mg PO DAILY dorzolamide-timolol 22.3-6.8 mg/mL Drops 1 drp OPHTHALMIC (EYE) BID Dulcolax (bisacodyl) 5 mg Tablet,Delayed Release (Dr/Ec) 5 mg PO DAILY PRN (Reason: Constipation) hydrochlorothiazide 25 mg Tablet 25 mg PO DAILY polyethylene glycol 3350 17 gram/dose powder 17 g PO DAILY lisinopril 40 mg Tablet 40 mg PO DAILY fluticasone propionate 50 mcg/actuation [place],Suspension 2 spray INTRANASAL DAILY PRN (Reason: Allergy Symptoms) Rx Instructions: administer into each nostril carboxymethylcellulose sodium 1 % Drops, Liquid Gel 1 drp OPHTHALMIC (EYE) QID PRN (Reason: Dry Eye(S)) oxycodone 5 mg tablet 5 mg PO Q4H PRN (Reason: Pain) tadalafil 20 mg Tablet 20 mg PO DAILY PRN (Reason: Erectile Dysfunction) Rx Instructions: administer approximately 30min before sexual activity; do not use more than 1 dose per 24hrs Vitamin D3 25 mcg (1,000 unit) Tablet 125 mcg PO DAILY diclofenac sodium 1 % Gel 4 g TOPICAL QID Rx Instructions: apply to single knee, ankle, foot; for foot includes sole/toes/top of foot cyclosporine 0.05 % Drops 1 drp OPHTHALMIC (EYE) Q12H Discontinued celecoxib 200 mg capsule 200 mg PO BID Discharge Orders: Discharge Order (Routine); Ordered 10/02/23 Ordered By: Julian Philip Referrals: Jac Leach DO [Primary Care Provider] - Discharge Diet: Cardiac, Low Salt and Low Cholesterol Discharge Activity: As per PT/OT instructions Patient Instructions: Opioid Safety Discharge Attestations Time Spent in Discharge Care*: greater than 30 min Quality Metrics Clinical Quality Measures [ Venous Thromboembolism { Contraindication to Overlap Therapy: Overlap treatment not indicated; VTE Discharge Education: Education about anticoagulant therapy/Care Notes given, Education about treatment options/disease process; Deep Vein Thrombosis/Pulmonary Embolism Present on Admission: Yes;}] Coding Level of Care Code Acute Code for Chg Fwd Diagnoses Multiple subsegmental pulmonary emboli without acute cor pulmonale I26.94 Pulmonary embolism type: multiple subsegmental (without acute cor pulmonale) Status post total knee replacement, left Z96.652 Obesity (BMI 30.0-34.9) E66.9 Gastroesophageal reflux disease, unspecified whether esophagitis present K21.9 Esophagitis presence: esophagitis presence not specified Primary hypertension I10 Hypertension type: primary hypertension History of total left knee replacement Z96.652
[2023-10-02 13:13] VITALS: BP 155/87; PULSE 68; RESP 16; TEMP 36.6; O2SAT 95
== END 2023-10-02 12:54 | disposition home or self-care (01) | DRG 176 ==
LOC: ER 13:00 → MEDSURG 16:02
PROVIDERS: Admitting Provider Internal Medicine; Emergency Provider Emergency Medicine; PCP Emergency Medicine Emergency Medical Services; Visit Provider Internal Medicine
DX: I26.94 Multiple subsegmental thrombotic pulmonary emboli without acute cor pulmonale (principal); Z98.890 Other specified postprocedural states; Z96.652 Presence of left artificial knee joint; K21.9 Gastro-esophageal reflux disease without esophagitis; I10 Essential (primary) hypertension; E66.9 Obesity, unspecified; Z68.30 Body mass index [BMI] 30.0-30.9, adult; Z79.82 Long term (current) use of aspirin
CPT/HCPCS: 36415; 71045; 71275; 80048; 80053; 83880; 84484; 85025; 85378; 93005; 93306; 96372; 97110; 97161; 97530; 99285; J1650; Q9967

== ENCOUNTER 2023-10-13 15:34 | Emergency (ER) | payer OTHER, SELFPAY ==
[2023-10-13] VITALS (50 sets, daily range): BP systolic 121–167; BP diastolic 78–95; PULSE 70–108; RESP 13–28; TEMP 36.8; O2SAT 92–98; BMI 37.6
--- NOTE | 2023-10-13 15:44 | W.ED.SYNCOPE ---
Documented by User: Brandan Huff DO 10/13/23 18:12 HPI - Syncope General: Chief Complaint: Syncope Stated Complaint: Syncope Time Seen by Provider: 10/13/23 15:43 Source: patient Mode of arrival: ambulatory History of Present Illness: 68-year-old male presents emergency room after near syncopal episode. He was sitting in a chair talking to somebody began to feel odd he had a feeling of impending doom and then passed out. He was out for just a short period of time seconds. He recently did have surgery in [place] had a knee surgery subsequently developed a pulmonary embolism. He is currently taking apixaban regularly has not missed any doses he denies any chest pain or excessive shortness of breath now. MD complaint: collapsed Associated symptoms: Deny abdominal pain, chest pain, fever(s), headache(s), lightheadedness, nausea, short of breath, vertigo or weakness Treatments prior to arrival: none Review of Systems Const: Denies: fever(s) or chills Card: Denies: chest pain or lightheadedness Resp: Denies: dyspnea GI: Denies: abdominal pain or nausea : Denies: dysuria, urinary frequency or urinary urgency Musc: Denies: neck pain or back pain Skin/Breast: Denies: rash or pruritus Neuro: Denies: headache(s) or vertigo [facility] ED PFSH: Medical History Obesity (BMI 30.0-34.9) GERD (gastroesophageal reflux disease) Hypertension Surgical History Status post total knee replacement, left Revision, 09/26/2023 History of total left knee replacement 2019 in [place] History of total right hip replacement Social History Smoking and tobacco/nicotine status: unknown if used tobacco/nicotine Alcohol intake: unknown Household members: spouse Marital status: Physical Exam Const: COMMON NORMALS: no acute distress GENERAL APPEARANCE: cooperative and comfortable ORIENTATION/CONSCIOUSNESS: Yes awake, Yes oriented to person, Yes oriented to place and Yes oriented to time HENMT: COMMON NORMALS: normocephalic, atraumatic and hearing grossly normal bilaterally HEAD & SCALP: normocephalic and atraumatic Resp: COMMON NORMALS: normal respiratory effort, No retractions, No use of accessory muscles and clear to auscultation bilaterally AUSCULTATION: clear to auscultation bilaterally Cardio: COMMON NORMALS: regular rate, regular rhythm and No murmurs present (Cardio) RATE: regular rate RHYTHM: regular rhythm GI: COMMON NORMALS: Soft to palpation and No hepatosplenomegaly present AUSCULTATION: Yes normoactive bowel sounds PALPATION: Yes Soft to palpation, No Tenderness to palpation present (GI), No Guarding due to palpation present (GI) and Yes No hepatosplenomegaly present Extremity: COMMON NORMALS: normal to inspection, capillary refill normal, no clubbing, cyanosis or edema, no calf tenderness and no pedal edema Neuro: SENSORIUM/ORIENTATION: Yes oriented to person, Yes oriented to place and Yes oriented to time Skin: COMMON NORMALS: no rashes or lesions noted GENERAL SKIN EXAM: no rashes or lesions noted Course Vital Signs: Vital signs: Vital Signs Temperature 98.3 F 10/13/23 15:44 Pulse Rate 98 10/13/23 18:50 Respiratory Rate 19 H 10/13/23 18:50 Blood Pressure 140/85 10/13/23 18:50 Pulse Oximetry 95 10/13/23 18:50 Oxygen Delivery Me thod Room Air 10/13/23 16:55 MDM - Syncope Medical Decision Making Care signed out to Dr. Partida at change of shift. See final notes for diagnosis and disposition. Lab Data 10/13/23 16:22 10/13/23 16:22 Radiology Impressions Chest CTA 10/13/23 18:11 IMPRESSION: 1. No evidence of PE or acute aortic abnormality. Laboratory Results WBC 10.69 10^3/uL (3.29-11.43) 10/13/23 16:22 RBC 3.86 10^6/uL (3.85-5.65) 10/13/23 16:22 Hgb 12.00 g/dL (11.27-16.99) 10/13/23 16:22 Hct 37.3 % (37-53) 10/13/23 16:22 MCV 96.6 fl (82-101) 10/13/23 16:22 MCH 31.1 pg (27-33) 10/13/23 16:22 MCHC 32.2 g/dL (30-55) 10/13/23 16: RDW 13.8 % (12.1-15.1) 10/13/23 16: Plt Count 894 10^3/cmm (157-399) H 10/13/23 16:22 MPV 10.4 fL (7.4-10.4) 10/13/23 16: Neut % (Auto) 74.8 % 10/13/23 16:22 Lymph % (Auto) 13.7 % 10/13/23 16:22 Metcalfe % (Auto) 9.4 % 10/13/23 16: Eos % (Auto) 0.6 % 10/13/23 16: Baso % (Auto) 1.3 % 10/13/23 16: Neut # (Auto) 8.01 10^3/uL (1.8-7.7) H 10/13/23 16: Lymph # (Auto) 1.5 10^3/uL (0.8-4.8) 10/13/23 16:22 Metcalfe # (Auto) 1.0 10^3/uL (0.2-0.9) H 10/13/23 16:22 Eos # (Auto) 0.1 10^3/uL (0.0-0.8) 10/13/23 16:22 Baso # (Auto) 0.1 10^3/uL (0.0-0.1) 10/13/23 16: Nucleated RBC % (auto) 0 % 10/13/23 16: Nucleated RBCs # 0.0 /100WBC 10/13/23 16:22 Sodium 142 mmol/L (136-145) 10/13/23 16:22 Potassium 4.2 mmol/L (3.5-5.1) 10/13/23 16:22 Chloride 106 mmol/L (98-107) 10/13/23 16:22 Carbon Dioxide 28 mmol/L (22-29) 10/13/23 16:22 Anion Gap 12.2 (5-19) 10/13/23 16:22 BUN 18 mg/dL (8-23) 10/13/23 16:22 Creatinine 1.1 mg/dL (0.7-1.2) 10/13/23 16:22 GFR Calculation 67.0 mL/min (90-130) L 10/13/23 16:22 Glucose 116 mg/dL (65-115) H 10/13/23 16:22 Calculated Osmolality 297 mOsm/kg (285-295) H 10/13/23 16:22 Calcium 9.8 mg/dL (8.5-10.5) 10/13/23 16:22 Total Bilirubin 0.5 mg/dL (0.15-1.2) 10/13/23 16:22 AST 31 U/L (0-40) 10/13/23 16:22 ALT 38 U/L (0-41) 10/13/23 16:22 Alkaline Phosphatase 123 U/L (40-130) 10/13/23 16:22 Troponin T Baseline 14 ng/L (0-15) 10/13/23 16:22 Troponin T 120 Minute 12.05 ng/L (0-15) 10/13/23 18:52 Delta Troponin T -1.95 ABS# (0-10) L 10/13/23 18:52 Total Protein 6.8 g/dL (6.6-8.7) 10/13/23 16:22 Albumin 4.0 g/dL (3.5-5.2) 10/13/23 16:22 Globulin 2.8 g/dL (1.3-4.6) 10/13/23 16:22 Urine Color Yellow (Yellow) 10/13/23 16:35 Urine Appearance Clear (CLEAR) 10/13/23 16:35 Urine pH 5 (5-7) 10/13/23 16:35 Ur Specific Freedom 1.015 (1.005-1.030) 10/13/23 16:35 Urine Protein Neg (Negative) 10/13/23 16:35 Urine Glucose (UA) Norm (Normal) 10/13/23 16:35 Urine Ketones Negative (Negative) 10/13/23 16:35 Urine Blood Neg (Negative) 10/13/23 16:35 Urine Nitrate Negative (Negative) 10/13/23 16:35 Urine Bilirubin Neg (Negative) 10/13/23 16:35 Urine Urobilinogen Norm mg/dL (Negative) 10/13/23 16:35 Ur Leukocyte Esterase Negative (Negative) 04/15/24 16:35 XR interpretation done by ED provider, pending radiology final review Discharge Plan Discharge Patient Disposition: Home Clinical Impression: Syncope Qualifiers: Syncope type: unspecified Qualified Code(s): R55 - Syncope and collapse Condition: Stable Prescriptions: No Action cetirizine 10 mg Tablet 10 mg PO DAILY PRN (Reason: Allergy Symptoms) ibuprofen 800 mg Tablet 800 mg PO TID PRN (Reason: Pain) tramadol 50 mg tablet 50 mg PO Q6H PRN (Reason: Pain) tamsulosin 0.4 mg Capsule 0.4 mg PO QPM triamcinolone acetonide 0.1 % Ointment 1 applic TOPICAL BID PRN (Reason: rash) lidocaine 5 % Adhesive Patch,Medicated 1 patch TOPICAL DAILY PRN (Reason: Pain) Rx Instructions: leave on most painful area for up to 12 hrs dorzolamide-timolol 22.3-6.8 mg/mL Drops 1 drp OPHTHALMIC (EYE) BID bisacodyl [Dulcolax (bisacodyl)] 5 mg Tablet,Delayed Release (Dr/Ec) 5 mg PO DAILY PRN (Reason: Constipation) hydrochlorothiazide 25 mg Tablet 25 mg PO DAILY polyethylene glycol 3350 17 gram/dose powder 17 g PO DAILY lisinopril 40 mg Tablet 40 mg PO DAILY fluticasone propionate 50 mcg/actuation [place],Suspension 2 spray INTRANASAL DAILY PRN (Reason: Allergy Symptoms) Rx Instructions: administer into each nostril carboxymethylcellulose sodium 1 % Drops, Liquid Gel 1 drp OPHTHALMIC (EYE) QID PRN (Reason: Dry Eye(S)) oxycodone 5 mg tablet 5 mg PO Q4H PRN (Reason: Pain) tadalafil 20 mg Tablet 20 mg PO DAILY PRN (Reason: Erectile Dysfunction) Rx Instructions: Approximately 30min before sexual activity; do not use more than 1 dose per 24hrs cholecalciferol (vitamin D3) [Vitamin D3] 25 mcg (1,000 unit) Tablet 125 mcg PO DAILY diclofenac sodium 1 % Gel 4 g TOPICAL QID Rx Instructions: apply to single knee, ankle, foot; for foot includes sole/toes/top of foot Eliquis 5 mg tablet 5 mg PO BID Qty: 60 0RF Discharge Orders: Discharge ED (Routine); Ordered 10/13/23 Ordered By: Vito Partida Referrals: Jac Leach DO [Primary Care Provider] - Discharge Diet: Usual diet Discharge Activity: Resume usual activity Patient Instructions: Opioid Safety, Pain Management Activity Restrictions/Additional Instructions: Activity Restrictions/Additional Instructions: Thank you for choosing [facility] for your healthcare needs today. Please realize that you were seen in the Emergency Department and that we are providing you with an emergency medical screening exam and this may not be a complete and all inclusive of all the testing and or medical work-up that you may need to determine your ailment or severity of your illness. It is very important that you follow-up as instructed with your Primary care provider or Specialist for additional evaluation and to discuss your medical treatment plan. You may return to the Emergency Department should you have concerns or if your condition changes or worsens in any way. Coding Level of Care Code ED Conservator Artifacts for Chg Fwd Documented by User: Vito Partida MD 10/13/23 20:15 HPI - Syncope General: Chief Complaint: Syncope Stated Complaint: Syncope Time Seen by Provider: 10/13/23 15:43 [facility] ED PFSH: Medical History Obesity (BMI 30.0-34.9) GERD (gastroesophageal reflux disease) Hypertension Surgical History Status post total knee replacement, left Revision, 09/26/2023 History of total left knee replacement 2019 in [place] History of total right hip replacement Social History Smoking and tobacco/nicotine status: unknown if used tobacco/nicotine Alcohol intake: unknown Household members: spouse Marital status: Course Vital Signs: Vital signs: Vital Signs Temperature 98.3 F 10/13/23 15:44 Pulse Rate 98 10/13/23 18:50 Respiratory Rate 19 H 10/13/23 18:50 Blood Pressure 140/85 10/13/23 18:50 Pulse Oximetry 95 10/13/23 18:50 Oxygen Delivery Me thod Room Air 10/13/23 16:55 MDM - Syncope Medical Decision Making Care signed out to Dr. Partida at change of shift. See final notes for diagnosis and disposition. I have discussed the patient's case with the off going Physician <Dr. Huff> and I have assumed care of the patient. We have discussed the current lab/radiographic results that have been resulted and the pending tests. Medical Records I reviewed the patient's medical records. Lab Data I reviewed the patient's lab results. 10/13/23 16:22 10/13/23 16:22 Radiology Impressions Chest CTA 10/13/23 18:11 IMPRESSION: 1. No evidence of PE or acute aortic abnormality. Laboratory Results WBC 10.69 10^3/uL (3.29-11.43) 10/13/23 16:22 RBC 3.86 10^6/uL (3.85-5.65) 10/13/23 16:22 Hgb 12.00 g/dL (11.27-16.99) 10/13/23 16:22 Hct 37.3 % (37-53) 10/13/23 16:22 MCV 96.6 fl (82-101) 10/13/23 16:22 MCH 31.1 pg (27-33) 10/13/23 16: MCHC 32.2 g/dL (30-55) 10/13/23 16:22 RDW 13.8 % (12.1-15.1) 10/13/23 16:22 Plt Count 894 10^3/cmm (157-399) H 10/13/23 16:22 MPV 10.4 fL (7.4-10.4) 10/13/23 16:22 Neut % (Auto) 74.8 % 10/13/23 16:22 Lymph % (Auto) 13.7 % 10/13/23 16:22 Metcalfe % (Auto) 9.4 % 10/13/23 16:22 Eos % (Auto) 0.6 % 10/13/23 16:22 Baso % (Auto) 1.3 % 10/13/23 16:22 Neut # (Auto) 8.01 10^3/uL (1.8-7.7) H 10/13/23 16:22 Lymph # (Auto) 1.5 10^3/uL (0.8-4.8) 10/13/23 16:22 Metcalfe # (Auto) 1.0 10^3/uL (0.2-0.9) H 10/13/23 16:22 Eos # (Auto) 0.1 10^3/uL (0.0-0.8) 10/13/23 16:22 Baso # (Auto) 0.1 10^3/uL (0.0-0.1) 10/13/23 16:22 Nucleated RBC % (auto) 0 % 10/13/23 16:22 Nucleated RBCs # 0.0 /100WBC 10/13/23 16:22 Sodium 142 mmol/L (136-145) 10/13/23 16:22 Potassium 4.2 mmol/L (3.5-5.1) 10/13/23 16:22 Chloride 106 mmol/L (98-107) 10/13/23 16:22 Carbon Dioxide 28 mmol/L (22-29) 10/13/23 16:22 Anion Gap 12.2 (5-19) 10/13/23 16:22 BUN 18 mg/dL (8-23) 10/13/23 16:22 Creatinine 1.1 mg/dL (0.7-1.2) 10/13/23 16:22 GFR Calculation 67.0 mL/min (90-130) L 10/13/23 16:22 Glucose 116 mg/dL (65-115) H 10/13/23 16:22 Calculated Osmolality 297 mOsm/kg (285-295) H 10/13/23 16:22 Calcium 9.8 mg/dL (8.5-10.5) 10/13/23 16:22 Total Bilirubin 0.5 mg/dL (0.15-1.2) 10/13/23 16:22 AST 31 U/L (0-40) 10/13/23 16:22 ALT 38 U/L (0-41) 10/13/23 16:22 Alkaline Phosphatase 123 U/L (40-130) 10/13/23 16:22 Troponin T Baseline 14 ng/L (0-15) 10/13/23 16:22 Troponin T 120 Minute 12.05 ng/L (0-15) 10/13/23 18:52 Delta Troponin T -1.95 ABS# (0-10) L 10/13/23 18:52 Total Protein 6.8 g/dL (6.6-8.7) 10/13/23 16:22 Albumin 4.0 g/dL (3.5-5.2) 10/13/23 16:22 Globulin 2.8 g/dL (1.3-4.6) 10/13/23 16:22 Urine Color Yellow (Yellow) 10/13/23 16:35 Urine Appearance Clear (CLEAR) 10/13/23 16:35 Urine pH 5 (5-7) 10/13/23 16:35 Ur Specific Freedom 1.015 (1.005-1.030) 10/13/23 16:35 Urine Protein Neg (Negative) 10/13/23 16:35 Urine Glucose (UA) Norm (Normal) 10/13/23 16:35 Urine Ketones Negative (Negative) 10/13/23 16:35 Urine Blood Neg (Negative) 10/13/23 16:35 Urine Nitrate Negative (Negative) 10/13/23 16:35 Urine Bilirubin Neg (Negative) 10/13/23 16:35 Urine Urobilinogen Norm mg/dL (Negative) 10/13/23 16:35 Ur Leukocyte Esterase Negative (Negative) 10/13/23 16:35 Discharge Plan Discharge Patient Disposition: Home Clinical Impression: Syncope Qualifiers: Syncope type: unspecified Qualified Code(s): R55 - Syncope and collapse Condition: Stable Prescriptions: No Action cetirizine 10 mg Tablet 10 mg PO DAILY PRN (Reason: Allergy Symptoms) ibuprofen 800 mg Tablet 800 mg PO TID PRN (Reason: Pain) tramadol 50 mg tablet 50 mg PO Q6H PRN (Reason: Pain) tamsulosin 0.4 mg Capsule 0.4 mg PO QPM triamcinolone acetonide 0.1 % Ointment 1 applic TOPICAL BID PRN (Reason: rash) lidocaine 5 % Adhesive Patch,Medicated 1 patch TOPICAL DAILY PRN (Reason: Pain) Rx Instructions: leave on most painful area for up to 12 hrs dorzolamide-timolol 22.3-6.8 mg/mL Drops 1 drp OPHTHALMIC (EYE) BID bisacodyl [Dulcolax (bisacodyl)] 5 mg Tablet,Delayed Release (Dr/Ec) 5 mg PO DAILY PRN (Reason: Constipation) hydrochlorothiazide 25 mg Tablet 25 mg PO DAILY polyethylene glycol 3350 17 gram/dose powder 17 g PO DAILY lisinopril 40 mg Tablet 40 mg PO DAILY fluticasone propionate 50 mcg/actuation [place],Suspension 2 spray INTRANASAL DAILY PRN (Reason: Allergy Symptoms) Rx Instructions: administer into each nostril carboxymethylcellulose sodium 1 % Drops, Liquid Gel 1 drp OPHTHALMIC (EYE) QID PRN (Reason: Dry Eye(S)) oxycodone 5 mg tablet 5 mg PO Q4H PRN (Reason: Pain) tadalafil 20 mg Tablet 20 mg PO DAILY PRN (Reason: Erectile Dysfunction) Rx Instructions: Approximately 30min before sexual activity; do not use more than 1 dose per 24hrs cholecalciferol (vitamin D3) [Vitamin D3] 25 mcg (1,000 unit) Tablet 125 mcg PO DAILY diclofenac sodium 1 % Gel 4 g TOPICAL QID Rx Instructions: apply to single knee, ankle, foot; for foot includes sole/toes/top of foot Eliquis 5 mg tablet 5 mg PO BID Qty: 60 0RF Discharge Orders: Discharge ED (Routine); Ordered 10/13/23 Ordered By: Vito Partida Referrals: Jac Leach, DO [Primary Care Provider] - Discharge Diet: Usual diet Discharge Activity: Resume usual activity Patient Instructions: Opioid Safety, Pain Management Activity Restrictions/Additional Instructions: Activity Restrictions/Additional Instructions: Thank you for choosing [facility] for your healthcare needs today. Please realize that you were seen in the Emergency Department and that we are providing you with an emergency medical screening exam and this may not be a complete and all inclusive of all the testing and or medical work-up that you may need to determine your ailment or severity of your illness. It is very important that you follow-up as instructed with your Primary care provider or Specialist for additional evaluation and to discuss your medical treatment plan. You may return to the Emergency Department should you have concerns or if your condition changes or worsens in any way. Coding Level of Care Code ED Conservator Artifacts for Toi Hercules
--- NOTE | 2023-10-13 15:58 | PC.PHAR ---
PT IS [facility]FA[facility] FOR MED LIST
--- NOTE | 2023-10-13 16:04 | ECG_ITS ---
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 Measurements Intervals [place] Rate: 77 P: 53 PA: 180 QRS: 20 QRSD: 98 T: 17 QT: 385 QTc: 437 Interpretive Statements SINUS RHYTHM INFERIOR MYOCARDIAL INFARCTION , PROBABLY OLD [40+ ms Q WAVE AND/OR ST/T ABNORMALITY IN II/aVF] Compared to ECG 10/01/2023 14:50:35 Myocardial infarct finding now present T-wave abnormality no longer present Electronically Signed On 10-13-2023 19:28:39 CDT by Caitlin Dorado M.D. [id number]
[2023-10-13] MEDS: sodium chloride 0.9% 1,000 ML 999 ML IV (16:08)
[2023-10-13 16:39] LABS: Add Urine Microscopic? NO; Charge for UA Resulting for Rev
[2023-10-13 16:50] LABS: Basophils # 0.1 10^3/uL (0.0-0.1); Basophils % 1.3 %; Eosinophils # 0.1 10^3/uL (0.0-0.8); Eosinophils % 0.6 %; Hematocrit 37.3 % (37-53); Lymphocytes # 1.5 10^3/uL (0.8-4.8); Lymphocytes % 13.7 %; Mean Corpuscular HGB Conc 32.2 g/dL (30-55); Mean Corpuscular Hemoglobin 31.1 pg (27-33); Mean Corpuscular Volume 96.6 fl (82-101); Mean Platelet Volume 10.4 fL (7.4-10.4); Monocytes % 9.4 %; Neutrophils # 8.01 10^3/uL (1.8-7.7); Neutrophils % 74.8 %; Nucleated Red Blood Cells % 0 %; Platelet Count 894 10^3/cmm (157-399); Red Blood Count 3.86 10^6/uL (3.85-5.65); Red Cell Distribution Width 13.8 % (12.1-15.1); White Blood Count 10.69 10^3/uL (3.29-11.43)
[2023-10-13 16:57] LABS: Bilirubin Urine Neg (Negative); Blood Urine Neg (Negative); Glucose Urine UA Norm (Normal); Ketones Urine Negative (Negative); Leukocyte Esterase Urine Negative (Negative); Nitrate Urine Negative (Negative); Protein Urine Neg (Negative); Specific Gravity, Urine 1.015 (1.005-1.030); Urine Appearance Clear (CLEAR); Urine Color Yellow (Yellow); Urobilinogen Urine Norm (Negative); pH Urine 5 (5-7)
[2023-10-13 17:15] LABS: Troponin(5th) Baseline 14 ng/L (0-15)
[2023-10-13 17:23] LABS: Alanine Aminotransferase 38 U/L (0-41); Alkaline Phosphatase 123 U/L (40-130); Anion Gap 12.2 (5-19); Aspartate Amino Transferase 31 U/L (0-40); Blood Urea Nitrogen 18 mg/dL (8-23); Calcium 9.8 mg/dL (8.5-10.5); Carbon Dioxide 28 mmol/L (22-29); Chloride 106 mmol/L (98-107); Creatinine Clr Calc Pharmacy 87.9853; Globulin 2.8 g/dL (1.3-4.6); Glucose 116 mg/dL (65-115); Osmolality Calculated 297 mOsm/kg (285-295); Potassium 4.2 mmol/L (3.5-5.1); Sodium 142 mmol/L (136-145); Total Bilirubin 0.5 mg/dL (0.15-1.2); Total Protein 6.8 g/dL (6.6-8.7)
--- NOTE | 2023-10-13 17:42 | ECG_ITS ---
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 Measurements Intervals [place] Rate: 93 P: 62 AK: 191 QRS: 42 QRSD: 103 T: 47 QT: 365 QTc: 455 Interpretive Statements SINUS RHYTHM PROBABLE INFERIOR MYOCARDIAL INFARCTION , PROBABLY OLD [35 ms Q WAVE IN II/aVF] Compared to ECG 10/13/2023 16:04:50 No significant changes Electronically Signed On 10-13-2023 19:38:36 CDT by Caitlin Dorado M.D. [id number]
--- NOTE | 2023-10-13 18:11 | CTR_ITS ---
PROCEDURE INFORMATION: Exam: CTA Chest With Contrast Exam date and time: 10/13/2023 7:05 PM Age: 68 years old Clinical indication: Shortness of breath; Additional info: Syncope, history of pe, recently had knee surgery. TECHNIQUE: Imaging protocol: Computed tomographic angiography of the chest with contrast. Exam focused on the arteries. 3D rendering (Not supervised by radiologist): MIP and/or 3D reconstructed images were created by the technologist. Radiation optimization: All CT scans at this facility use at least one of these dose optimization techniques: automated exposure control; mA and/or kV adjustment per patient size (includes targeted exams where dose is matched to clinical indication); or iterative reconstruction. Contrast material: OMNI 350; Contrast volume: 82 ml; Contrast route: INTRAVENOUS (IV); COMPARISON: CT angio chest PE protcl [id number] 10/01/2023 2:59 PM RADIATION DOSE METRICS: Total DLP (mGy-cm): 468.97 FINDINGS: Pulmonary arteries: No evidence of pulmonary thromboembolism. Aorta: No evidence of aneurysmal dilatation or dissection of the thoracic aorta. Thyroid: Grossly unremarkable. Lungs: No focal consolidation. No evidence of pneumonia. Pleural spaces: No evidence of pleural effusion. No pneumothorax. Heart: No cardiomegaly. No pericardial effusion. Mediastinal space: No evidence of mediastinal mass, fluid collection or hematoma. Lymph nodes: No mediastinal or hilar adenopathy. Bones/joints: No evidence of acute fracture or aggressive osseous lesion. Soft tissues: No evidence of fluid collection or hematoma in the superficial soft tissues. Other findings: No evidence of acute abnormality in the upper abdomen. CT/CT angio chest PE protcl [id number] IMPRESSION: 1. No evidence of PE or acute aortic abnormality.
[2023-10-13] MEDS: iohexol 350 mg/mL 500 mL Btl (per mL) IV (19:14)
[2023-10-13 19:45] LABS: Troponin 5 2HR 12.05 ng/L (0-15)
[2023-10-13 19:48] LABS: Troponin 5 2HR Delta -1.95 ABS# (0-10)
== END 2023-10-13 20:35 | disposition home or self-care (01) ==
PROVIDERS: Family Medicine; Emergency Provider Internal Medicine; PCP Emergency Medicine Emergency Medical Services
DX: R55 Syncope and collapse (principal); Z79.01 Long term (current) use of anticoagulants; I10 Essential (primary) hypertension
CPT/HCPCS: 36415; 71275; 80053; 81003; 84484; 85025; 93005; 99285; J7030; Q9967

== ENCOUNTER → 2024-01-27 11:01 | Outpatient (BNVA) | payer OTHER, SELFPAY | PROVIDERS: PCP Emergency Medicine Emergency Medical Services; Referring Provider Emergency Medicine Emergency Medical Services; Visit Provider Internal Medicine Cardiovascular Disease | DX: R55 Syncope and collapse (principal); R53.83 Other fatigue; I26.94 Multiple subsegmental thrombotic pulmonary emboli without acute cor pulmonale; R94.31 Abnormal electrocardiogram [ECG] [EKG]; I10 Essential (primary) hypertension; Z96.652 Presence of left artificial knee joint | CPT/HCPCS: 99204 ==

== ENCOUNTER 2024-03-19 07:50 | Outpatient (CLI) | payer OTHER, SELFPAY ==
--- NOTE | 2024-03-19 | ECG_ITS ---
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 Interpretive Statements PROCEDURE: At the baseline, the EKG revealed normal sinus rhythm with a normal ST Ts. The baseline heart was 66 bpm with a blood pressue of 137/79 mm of Hg Lexiscan was infused over a period of 20 seconds. A total of 0.4 milligrams of Lexiscan was infused. The stress phase was continued for a total of 5 minutes. Heart rate at the end of the stress phase was 82 bpm with a blood pressure 115/69 mm of Hg. The EKG at the peak infusion revealed no significant changes. Sestamibi was injected 20 seconds after the Lexiscan infusion. Heart rate at the end of the recovery phase was 82 bpm with a blood pressure of 129/73 mm of Hg. CONCLUSION: 1. No significant EKG changes with the LexiScan infusion 2. No LexiScan induced chest pain or cardiac arrhythmia 3. Normal blood pressure and heart rate response 4. Sestamibi/ sestamibi perfusion scan pending; see separate report. Electronically Signed On 03-21-2024 19:40:02 CDT by Caitlin Dorado M.D. [id number]
[2024-03-19 08:22] VITALS: BMI 31.8
--- NOTE | 2024-03-19 08:23 | NMCV_ITS ---
NM coral perf SPECT r/s* [id number] Reed Newton Age: 69 Gender: M : 1955 Exam Date: 03/19/2024 08:55 Ordering Phys: Caitlin Dorado MD ([email or web address]) Technologist: OSVALDO Haney Exam Location: [facility] Indications: syncope,fatigue STRESS TEST Please [facility] IMAGE PROTOCOL Rest/Stress 1 Lexiscan Day Radiopharmaceutical Dose (mCi) Administration Site Administered by Rest: Tc-99m 10.8 IV Rody Smith LAB SCIENTIST Sestamibi Stress:Tc-99m 32.8 IV Rody Smith, LAB SCIENTIST Sestamibi Rest: 19-Mar-2024 60 Discovery 630 Stress: 19-Mar-2024 30 Discovery 630 0.4mg Lexiscan. Images obtained in supine and prone position. SPECT RESULTS Technical Quality: Good Raw Data Analysis: Normal Image Corrections: No attenuation or motion correction applied Summed Stress Score: 0 Summed Rest Score: 0 Summed Difference Score: 0 PERFUSION FINDINGS Small area of basal anterior and moderate area basal to mid inferior inferolateral perfusion defect was noted on the stress which in the absence of wall motion abnormality could be attenuation artifact since there is no prone images FUNCTIONAL RESULTS (calculated via Gated SPECT) Stress Image LV EF (%): 74 Stress EDV (mL):94 TID: 1.07 Stress ESV (mL):24 FUNCTIONAL FINDINGS: There is normal left ventricular systolic function. IMPRESSIONS Small area of basal anterior and moderate area of basal to mid inferolateral perfusion defect suggestive of ischemia noted on the stress images however in the absence of wall motion abnormality it could be attenuation artifact, clinical correlation advised Clemente Sam MD (Electronically Signed) Final Date: 19 March 2024 17:15 S
[2024-03-19] MEDS: regadenoson 0.4 Mg/5 ml Syringe IVP (09:39)
[2024-03-19 09:50] VITALS: BP 129/73; PULSE 84
== END 2024-03-19 07:51 | disposition home or self-care (01) ==
PROVIDERS: PCP Family Medicine; Visit Provider Internal Medicine Cardiovascular Disease
DX: Z98.61 Coronary angioplasty status (principal); R94.39 Abnormal result of other cardiovascular function study
CPT/HCPCS: 36415; 78452; 93017; 96374; A9500; J2785

== ENCOUNTER → 2024-04-27 10:00 | Outpatient (BNVA) | payer OTHER, SELFPAY | PROVIDERS: PCP Family Medicine; Visit Provider Internal Medicine Cardiovascular Disease | DX: R94.31 Abnormal electrocardiogram [ECG] [EKG] (principal); I10 Essential (primary) hypertension; R53.83 Other fatigue; D47.3 Essential (hemorrhagic) thrombocythemia; Z86.711 Personal history of pulmonary embolism; Z79.01 Long term (current) use of anticoagulants | CPT/HCPCS: 99214 ==

== ENCOUNTER 2024-08-07 13:35 | Emergency (ER) | payer OTHER, SELFPAY ==
[2024-08-07 14:13] VITALS: BP 131/88; PULSE 64; RESP 17; TEMP 36.8; O2SAT 97; BMI 32.1
--- NOTE | 2024-08-07 14:34 | USR_ITS ---
PROCEDURE INFORMATION: Exam: US Duplex Left Upper Extremity Veins, Limited Exam date and time: 08/07/2024 3:07 PM Age: 69 years old Clinical indication: Screening exam; R/O thrombus TECHNIQUE: Imaging protocol: Real-time duplex ultrasound of the left extremity with 2-D rodriguez scale, color Doppler flow and spectral waveform analysis including responses to compression and other maneuvers (when performed) with image documentation. Limited exam focused on the left upper extremity veins. COMPARISON: CT angio chest PE protcl [id number] 10/13/2023 7:05 PM FINDINGS: Left deep veins: Unremarkable. Axillary and brachial veins are patent throughout without thrombus. Normal Doppler waveforms. Normal compressibility and/or augmentation response. Visualized internal jugular and subclavian veins are patent. Superficial veins: Unremarkable. Visualized cephalic and basilic veins are patent without thrombus. Soft tissues: Within the subcutaneous soft tissues of the upper anterior arm, there is an oval hypoechoic masslike structure without vascularity measuring 1.8 x 1.1 x 1.6 cm. US/[place] [id number] IMPRESSION: 1. No evidence of deep vein thrombosis. 2. Hypoechoic masslike structure without vascularity in the subcutaneous soft tissues of the upper anterior arm has reportedly been present for a prolonged period and could represent a chronic expanding organizing hematoma or similar entity. This could be further assessed with nonemergent MRI if warranted.
--- NOTE | 2024-08-07 15:35 | W.ED.WOUNDLC ---
HPI - Wound/Laceration General: Chief Complaint: Wound/Laceration Stated Complaint: wound on left shoulder Time Seen by Provider: 08/07/24 14:34 History of Present Illness: Reed Newton is a 69-year-old [id number] male that presents to the emergency department with complaints of area of tenderness swelling and redness in the left upper extremity. Patient reports has a history of cystic lesions that have required resection in the past. He has been seeing a indirect sales representative for a new lesion in the left upper extremity over the bicep. He is hide patient is about resection. Patient arrives here requesting excision. The area is approximately 12 cm in diameter. It is warm to the touch and has some areas of ecchymosis and erythema. There are no open wounds. Related Data Home Medications ?Medication ?Instructions ?Recorded ?Confirmed bisacodyl 5 mg tablet,delayed 5 mg PO DAILY PRN Constipation 10/01/23 04/27/24 release (Dulcolax (bisacodyl)) carboxymethylcellulose sodium 1 % 1 drp ophthalmic (eye) QID PRN Dry 10/01/23 04/27/24 eye liquid gel drops Eye(S) cetirizine 10 mg tablet 10 mg PO DAILY PRN Allergy Symptoms 10/01/23 04/27/24 cholecalciferol (vitamin D3) 25 125 mcg PO DAILY 10/01/23 04/27/24 mcg (1,000 unit) tablet (Vitamin D3) dorzolamide 22.3 mg-timolol 6.8 1 drp ophthalmic (eye) BID 10/01/23 04/27/24 mg/mL eye drops fluticasone propionate 50 2 spray intranasal DAILY PRN 10/01/23 04/27/24 mcg/actuation nasal Allergy Symptoms spray,suspension ibuprofen 800 mg tablet 800 mg PO TID PRN Pain 10/01/23 04/27/24 lidocaine 5 % topical patch 1 patch topical DAILY PRN Pain 10/01/23 04/27/24 lisinopril 40 mg tablet 40 mg PO DAILY 10/01/23 04/27/24 polyethylene glycol 3350 17 17 g PO DAILY 10/01/23 04/27/24 gram/dose oral powder tadalafil 20 mg tablet 20 mg PO DAILY PRN Erectile 10/01/23 04/27/24 Dysfunction tamsulosin 0.4 mg capsule 0.4 mg PO QPM 10/01/23 04/27/24 triamcinolone acetonide 0.1 % 1 applic topical BID PRN rash 10/01/23 04/27/24 topical ointment CPAP 01/27/24 04/27/24 diclofenac sodium 1 % topical gel 4 g topical QID PRN 01/27/24 04/27/24 hydrochlorothiazide 25 mg tablet 12.5 mg PO DAILY 01/27/24 04/27/24 Previous Rx's ?Medication ?Instructions ?Recorded apixaban 5 mg tablet (Eliquis) 5 mg PO BID #60 tabs 10/02/23 cephalexin 500 mg tablet 500 mg PO Q6H 7 days #28 tabs 08/07/24 Allergies Allergy/AdvReac Type Severity Reaction Status Date / Time diphenhydramine (From Allergy ADR-Irritab Verified 04/27/24 10:06 Benadryl) le morphine Allergy ALGY-Rash Verified 04/27/24 10:06 Review of Systems General: Reports: 10 or more systems reviewed and unremarkable except in HPI and below PFSH ED PFSH: Medical History Syncope Hypertension Obesity (BMI 30.0-34.9) GERD (gastroesophageal reflux disease) Surgical History Status post total knee replacement, left Revision, 09/26/2023 History of total left knee replacement 2019 in [place] History of total right hip replacement Family History Father Cancer Mother Hypertension Social History Smoking and tobacco/nicotine status: never used tobacco/nicotine Alcohol intake: unknown Household members: spouse Marital status: Physical Exam Const: COMMON NORMALS: no acute distress, patient oriented x3 and alert GENERAL APPEARANCE: cooperative ORIENTATION/CONSCIOUSNESS: Yes awake, Yes oriented to person, Yes oriented to place and Yes oriented to time Chest: COMMONS NORMALS: normal inspection of the chest Breast/axilla inspection: Yes no chest deformity, asymmetry, normal contours, no nodules, masses, tenderness Resp: COMMON NORMALS: normal respiratory effort, No retractions and No use of accessory muscles EFFORT & INSPECTION: Yes able to speak in complete sentences and Yes symmetric chest movement Extremity: COMMON NORMALS: normal to inspection GENERAL: Yes normal exam except as noted Neuro: COMMON NORMALS: patient oriented x3 SENSORIUM/ORIENTATION: Yes alert, Yes oriented to person, Yes oriented to place and Yes oriented to time CRANIAL NERVES: Yes CN normal except as noted Psych: COMMON NORMALS: mental status grossly normal, Normal thought process present, cooperative, activity/motor behavior normal, denies homicidal ideation and denies suicidal ideation THOUGHT PROCESS: Normal thought process present Skin: COMMON NORMALS: no wounds and turgor normal GENERAL SKIN EXAM: elasticity normal, turgor normal, ecchymosis and erythema LESIONS: lesion noted (Reports of cystic lesion to the left bicep.There is an area of firmness. ) Course Vital Signs: Vital signs: Vital Signs Temperature 98.2 F 08/07/24 14:13 Pulse Rate 64 08/07/24 14:13 Respiratory Rate 17 08/07/24 14:13 Blood Pressure 131/88 08/07/24 14:13 Pulse Oximetry 97 08/07/24 14:13 Oxygen Delivery Me thod Room Air 08/07/24 14:13 MDM - Wound/Laceration Medical Decision Making Differential diagnosis includes cystic lesion, DVT, aneurysm, bicep tendon rupture. Patient underwent ultrasound of the left upper extremity which revealed no DVT or abnormal vascular structure. There is a cystic lesion noted. The ultrasound has not been read formally by radiology but has been read by the traffic analysis technician. If radiology read is different from commercial technician read, we will need to notify the patient. Patient has follow-up with dermatology. Going to treat him for a cellulitis since it is warm to the touch. Cephalexin started here. XR interpretation done by ED provider, pending radiology final review Discharge Plan Discharge Patient Disposition: Home Clinical Impression: Cellulitis Condition: Stable Prescriptions: New cephalexin 500 mg tablet 500 mg PO Q6H 7 Days Qty: 28 0RF No Action (DME) CPAP Device See Rx Instructions .Route Rx Instructions: As directed cetirizine 10 mg Tablet 10 mg PO DAILY PRN (Reason: Allergy Symptoms) ibuprofen 800 mg Tablet 800 mg PO TID PRN (Reason: Pain) tamsulosin 0.4 mg Capsule 0.4 mg PO QPM triamcinolone acetonide 0.1 % Ointment 1 applic TOPICAL BID PRN (Reason: rash) lidocaine 5 % Adhesive Patch,Medicated 1 patch TOPICAL DAILY PRN (Reason: Pain) Rx Instructions: leave on most painful area for up to 12 hrs dorzolamide-timolol 22.3-6.8 mg/mL Drops 1 drp OPHTHALMIC (EYE) BID bisacodyl [Dulcolax (bisacodyl)] 5 mg Tablet,Delayed Release (Dr/Ec) 5 mg PO DAILY PRN (Reason: Constipation) polyethylene glycol 3350 17 gram/dose powder 17 g PO DAILY lisinopril 40 mg Tablet 40 mg PO DAILY fluticasone propionate 50 mcg/actuation [place],Suspension 2 spray INTRANASAL DAILY PRN (Reason: Allergy Symptoms) Rx Instructions: administer into each nostril carboxymethylcellulose sodium 1 % Drops, Liquid Gel 1 drp OPHTHALMIC (EYE) QID PRN (Reason: Dry Eye(S)) tadalafil 20 mg Tablet 20 mg PO DAILY PRN (Reason: Erectile Dysfunction) Rx Instructions: Approximately 30min before sexual activity; do not use more than 1 dose per 24hrs cholecalciferol (vitamin D3) [Vitamin D3] 25 mcg (1,000 unit) Tablet 125 mcg PO DAILY Eliquis 5 mg tablet 5 mg PO BID Qty: 60 0RF diclofenac sodium 1 % gel 4 g TOPICAL QID PRN Rx Instructions: apply to single knee, ankle, foot; for foot includes sole/toes/top of foot hydrochlorothiazide 25 mg tablet 12.5 mg PO DAILY Discharge Orders: Discharge ED (Routine); Ordered 08/07/24 Ordered By: Elizabet Molina [facility] [place] Referrals: Nadia Tobar MD [Primary Care Provider] - Discharge Diet: Advance as tolerated Discharge Activity: Resume usual activity Patient Instructions: Cellulitis (ED), Pain Management Activity Restrictions/Additional Instructions: As discussed, ultrasound was read by the commercial technician and has not been read by the radiologist as of yet. The traffic analysis technician does not see any vascular abnormality but rather a cystic lesion that was originally described by you. There is warmth to the area as well as tenderness so we are going to treat you as a cellulitis. This is an infection of the soft tissue. It is treated with cephalexin that we started here in the emergency department. You will need to nut picker your prescription. Want you to follow-up with your primary care provider as well as her indirect sales representative. 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
[2024-08-07 15:51] VITALS: BP 133/69; PULSE 68; RESP 16; O2SAT 97
== END 2024-08-07 15:51 | disposition home or self-care (01) ==
PROVIDERS: Emergency Provider Nurse Practitioner; PCP Family Medicine
DX: L03.114 Cellulitis of left upper limb (principal); Z79.01 Long term (current) use of anticoagulants; I10 Essential (primary) hypertension
CPT/HCPCS: 93971; 99284

== ENCOUNTER 2024-09-28 05:00 | Outpatient (RCR) | payer OTHER, SELFPAY | END 2024-10-27 23:59 | disposition home or self-care (01) | LOC: TPT 05:00 | PROVIDERS: Visit Provider Physician Assistant | DX: Z47.1 Aftercare following joint replacement surgery (principal); Z96.652 Presence of left artificial knee joint | CPT/HCPCS: 97110; 97161 ==

== ENCOUNTER 2024-10-28 05:00 | Outpatient (RCR) | payer OTHER, SELFPAY | END 2024-11-27 23:59 | disposition home or self-care (01) | LOC: TPT 05:00 | PROVIDERS: Visit Provider Physician Assistant | DX: Z98.890 Other specified postprocedural states (principal) | CPT/HCPCS: 97110 ==

== ENCOUNTER 2024-11-28 05:00 | Outpatient (RCR) | payer OTHER, SELFPAY | END 2024-12-27 23:59 | disposition home or self-care (01) | LOC: TPT 05:00 | PROVIDERS: Visit Provider Physician Assistant | DX: Z47.1 Aftercare following joint replacement surgery (principal); Z96.652 Presence of left artificial knee joint | CPT/HCPCS: 97110 ==

== ENCOUNTER 2024-12-28 05:00 | Outpatient (RCR) | payer OTHER, SELFPAY | END 2025-01-27 23:59 | disposition home or self-care (01) | LOC: TPT 05:00 | PROVIDERS: Visit Provider Physician Assistant | DX: Z47.1 Aftercare following joint replacement surgery (principal); Z96.652 Presence of left artificial knee joint | CPT/HCPCS: 97110 ==